=== PATIENT | male | born 1940 | race Caucasian/White ===

== ENCOUNTER 2017-10-12 12:57 | Emergency (ER) | payer OTHER ==
[~2017-10-12] VITALS: Ht 180.3 cm; Wt 80.7 kg
[~2017-10-12 12:57] MED LIST: ALDACTONE25 MG PO; ARICEPT 5 MG TAB5 MG PO; ASPIR 8181 MG PO; CALCIUM POLYCA625 MG PO; ESSENTIAL DAIL1 EACH PO; LIPITOR40 MG PO; LISINOPRIL10 MG PO; LISINOPRIL2.5 MG PO; LOPRESSOR25 PO; MELATONIN3 MG PO; MIRALAX17 GM PO; NITROGLYCERIN0.4 MG SUBLING; PLAVIX 75 MG TA75 M1 PO; ZANTAC 150MG T150 MG PO
[2017-10-12 13:16] LABS: ABSOLUTE EOSINOPHILS 0.3 thou/uL (0.0-0.7); ABSOLUTE LYMPHOCYTES 1.3 thou/uL (0.8-5.3); ABSOLUTE MONOCYTES 0.5 thou/uL (0.0-1.2); ABSOLUTE NEUTROPHILS 7.1 thou/uL (1.6-8.1); BASOPHILS 0.5 %; EOSINOPHILS 3.2 %; HEMATOCRIT 45.6 % (42.0-52.0); HEMOGLOBIN 15.4 gm/dL (14.0-18.0); LYMPHOCYTES 13.9 %; MCH 30.3 pg (26.0-34.0); MCHC 33.9 g/dL (28.0-37.0); MCV 89.5 fL (80.0-100.0); MPV 7.5 fl. (7.2-11.1); NUCLEATED RBCS 0 /100WBC; PLATELET COUNT* 214 thou/uL (150-400); POLYS 77.4 %; WBC 9.2 thou/uL (4.0-11.0)
[2017-10-12] MEDS ORDERED: ALDACTONE25 MG PO (13:21)
[2017-10-12] MEDS ORDERED: SENIOR TABS1 EACH PO (13:22)
[2017-10-12 13:28] LABS: APTT 26.1 Seconds (25.0-31.3); INR 1.1; PROTIME 11.1 Seconds (9.20-11.50)
[2017-10-12 13:30] LABS: ANION GAP 4 mmol/L (7-16); BUN 21 mg/dL (7-18); CHLORIDE 103 mmol/L (98-107); CO2 33 mmol/L (21-32); CREATININE 1.6 mg/dL (0.6-1.3); GLUCOSE 147 mg/dL (70-99); POTASSIUM 4.5 mmol/L (3.5-5.1); SODIUM 140 mmol/L (136-145)
[2017-10-12 14:00] LABS: ALBUMIN 3.8 g/dL (3.4-5.0); ALKALINE PHOSPHATASE 177 U/L (46-116); LIPASE 276 U/L (73-393); NT-PRO BRAIN NAT PEPTIDE 1015 pg/mL (<300); SGOT 28 U/L (15-37); SGPT 51 U/L (30-65); TOTAL BILIRUBIN 0.6 mg/dL (<0.1-1.0); TOTAL PROTEIN 7.2 g/dL (6.4-8.2); TROPONIN-I LEVEL <0.06 ng/mL (<0.06)
[2017-10-12 15:42] VITALS: BP 123/78
--- NOTE | 2017-10-12 15:42 | EKG ---
[place] [address] ELECTROCARDIOGRAM REPORT Name: VAZQUEZ COHN Room: [facility]#: [id number] Admission: 10/12/17 Attend Phys: Discharge: Date of : 42 Report #: [id number] THIS REPORT FOR: //name// 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
--- NOTE | 2017-10-13 11:59 | EKG ---
[place] [address] ELECTROCARDIOGRAM REPORT Name: VAZQUEZ COHN Room: [facility]#: [id number] Admission: 10/12/17 Attend Phys: Discharge: 10/12/17 Date of : 42 Report #: [id number] THIS REPORT FOR: //name// [facility] ED Test Date: 2017-10-12 Test Time: 14:59:55 Pat Name: VAZQUEZ COHN Department: Room: Gender: M Traffic Sign Erection Supervisor: Jai SANDY : 1940 Requested By: Breezy Horan Order Number: [id number] MD: Venkat Santo Measurements Intervals [place] Rate: 67 P: 10 CO: 195 QRS: -24 QRSD: 103 T: 73 QT: 425 QTc: 449 Interpretive Statements Sinus rhythm Atrial premature complex Borderline left axis deviation Anteroseptal infarct, age indeterminate Compared to ECG 10/12/2017 13:01:12 Atrial premature complex(es) now present Myocardial infarct finding still present Electronically Signed On 10-13-2017 11:59:40 QLIKVIEW DEVELOPER by Venkat Santo [email or web address] <ELECTRONICALLY SIGNED> By: Venkat Santo MD, [facility] 10/13/17 1159 1459 1459 Venkat Santo MD, [facility] /EPI
== END 2017-10-12 15:42 | disposition home or self-care (01) ==
LOC: M.ERS 12:57
PROVIDERS: Family Medicine
DX: R07.89 Other chest pain (principal); I25.2 Old myocardial infarction; E78.00 Pure hypercholesterolemia, unspecified; G30.9 Alzheimer's disease, unspecified; F02.80 Dementia in other diseases classified elsewhere, unspecified severity, without behavioral disturbance, psychotic disturbance, mood disturbance, and anxiety; Z87.891 Personal history of nicotine dependence

== ENCOUNTER 2017-12-15 10:09 | Emergency (ER) | payer OTHER ==
[~2017-12-15] VITALS: Ht 175.3 cm; Wt 80.3 kg
[~2017-12-15 10:09] MED LIST changes: +SENIOR TABS1 EACH PO
[2017-12-15] MEDS ORDERED: ARICEPT 5 MG TAB5 MG PO (10:20)
[2017-12-15] MEDS ORDERED: NAMENDA 10 MG T10 MG PO (10:21)
[2017-12-15] MEDS ORDERED: VITAMIN B-6100 MG PO (10:21)
[2017-12-15 10:39] LABS: ABSOLUTE BASOPHILS 0.1 thou/uL (0.0-0.2); ABSOLUTE EOSINOPHILS 0.2 thou/uL (0.0-0.7); ABSOLUTE LYMPHOCYTES 1.2 thou/uL (0.8-5.3); ABSOLUTE MONOCYTES 0.5 thou/uL (0.0-1.2); ABSOLUTE NEUTROPHILS 6.2 thou/uL (1.6-8.1); BASOPHILS 0.8 %; HEMATOCRIT 43.3 % (42.0-52.0); HEMOGLOBIN 14.7 gm/dL (14.0-18.0); LYMPHOCYTES 14.1 %; MCH 30.6 pg (26.0-34.0); MCV 89.9 fL (80.0-100.0); MONOCYTES 6.1 %; MPV 7.4 fl. (7.2-11.1); NUCLEATED RBCS 0 /100WBC; PLATELET COUNT* 193 thou/uL (150-400); RBC 4.82 mil/uL (4.50-6.00); RDW-CV 13.9 % (10.5-14.5); WBC 8.1 thou/uL (4.0-11.0)
[2017-12-15 10:48] LABS: CREATININE 1.3 mg/dL (0.6-1.3); POTASSIUM 3.9 mmol/L (3.5-5.1)
[2017-12-15 10:49] LABS: APTT 26.5 Seconds (25.0-31.3); INR 1.2; PROTIME 11.5 Seconds (9.20-11.50)
[2017-12-15 10:53] LABS: URINE BILIRUBIN NEGATIVE (Negative); URINE BLOOD NEGATIVE (Negative); URINE CLARITY CLEAR; URINE COLOR YELLOW; URINE GLUCOSE-RANDOM NEGATIVE (Negative); URINE KETONES NEGATIVE (Negative); URINE LEUKOCYTES-REFLEX NEGATIVE (Negative); URINE NITRITE-REFLEX NEGATIVE (Negative); URINE PROTEIN NEGATIVE (Negative); URINE SPECIFIC GRAVITY <= 1.005 (1.005-1.030); URINE UROBILINOGEN 0.2 E.U./dl (0.2-1.0)
[2017-12-15 10:57] LABS: ALBUMIN 3.4 g/dL (3.4-5.0); TOTAL BILIRUBIN 0.6 mg/dL (<0.1-1.0); TOTAL PROTEIN 6.4 g/dL (6.4-8.2)
[2017-12-15 11:42] VITALS: BP 141/81
== END 2017-12-15 11:48 | disposition home or self-care (01) ==
LOC: M.ERS 10:09
PROVIDERS: Nurse Practitioner Family
DX: S93.491A Sprain of other ligament of right ankle, initial encounter (principal); G30.9 Alzheimer's disease, unspecified; F02.80 Dementia in other diseases classified elsewhere, unspecified severity, without behavioral disturbance, psychotic disturbance, mood disturbance, and anxiety; E78.00 Pure hypercholesterolemia, unspecified; G47.33 Obstructive sleep apnea (adult) (pediatric); G25.81 Restless legs syndrome; I25.10 Atherosclerotic heart disease of native coronary artery without angina pectoris; I12.9 Hypertensive chronic kidney disease with stage 1 through stage 4 chronic kidney disease, or unspecified chronic kidney disease; N18.3 Chronic kidney disease, stage 3 (moderate); Z87.891 Personal history of nicotine dependence; W01.0XXA Fall on same level from slipping, tripping and stumbling without subsequent striking against object, initial encounter; Y93.89 Activity, other specified; Y92.89 Other specified places as the place of occurrence of the external cause; Y99.8 Other external cause status

== ENCOUNTER 2020-02-04 13:02 | Inpatient (IN) | payer OTHER, MEDICAID ==
[~2020-02-04] VITALS: Ht 180.3 cm; Wt 57.3 kg
[~2020-02-04 13:02] MED LIST changes: +NAMENDA 10 MG T10 MG PO; +VITAMIN B-6100 MG PO
[2020-02-04 13:03] VITALS: BP 113/75
[2020-02-04] MEDS ORDERED: DORYX MPC120 MG PO (13:11)
[2020-02-04] MEDS ORDERED: DEPAKOTE125 MG PO (13:11)
[2020-02-04] MEDS ORDERED: LOPERAMIDE2 MG PO (13:13)
[2020-02-04] MEDS ORDERED: TOPROL XL50 MG (13:14)
[2020-02-04] MEDS ORDERED: SERTRALINE HCL100 MG PO (13:14)
[2020-02-04] MEDS ORDERED: REMERON 30 MG T30 M1 PO (13:14)
[2020-02-04 13:29] LABS: HEMATOCRIT 37.3 % (42.0-52.0); HEMOGLOBIN 12.7 gm/dL (14.0-18.0); MCH 31.1 pg (26.0-34.0); MCV 91.6 fL (80.0-100.0); MPV 8.1 fl. (7.2-11.1); NUCLEATED RBCS 0 /100WBC; PLATELET COUNT* 204 thou/uL (150-400); RBC 4.07 mil/uL (4.50-6.00); RDW-CV 14.8 % (10.5-14.5); WBC 18.1 thou/uL (4.0-11.0)
[2020-02-04 13:39] LABS: INR 1.1; PROTIME 11.7 Seconds (9.20-11.50)
[2020-02-04 13:40] LABS: CALCIUM 8.6 mg/dL (8.5-10.1); CREATININE 1.8 mg/dL (0.6-1.3); POTASSIUM 3.8 mmol/L (3.5-5.1)
[2020-02-04 13:47] LABS: URINE BILIRUBIN NEGATIVE (Negative); URINE BLOOD 2+ (Negative); URINE CLARITY CLEAR; URINE COLOR YELLOW; URINE GLUCOSE-RANDOM NEGATIVE (Negative); URINE KETONES NEGATIVE (Negative); URINE LEUKOCYTES-REFLEX 1+ (Negative); URINE NITRITE-REFLEX NEGATIVE (Negative); URINE PROTEIN TRACE (Negative); URINE SPECIFIC GRAVITY 1.025 (1.005-1.030); URINE UROBILINOGEN 0.2 E.U./dl (0.2-1.0)
[2020-02-04 13:51] LABS: ALBUMIN 2.4 g/dL (3.4-5.0); TOTAL BILIRUBIN 0.3 mg/dL (<0.1-1.0); TOTAL PROTEIN 6.6 g/dL (6.4-8.2)
[2020-02-04 13:55] LABS: ABSOLUTE LYMPHOCYTES 1.1 thou/uL (0.8-5.3); ABSOLUTE MONOCYTES 0.5 thou/uL (0.0-1.2); ABSOLUTE NEUTROPHILS 16.5 thou/uL (1.6-8.1); PLATELET ESTIMATE ADEQUATE
[2020-02-04 13:59] LABS: BACTERIA-REFLEX 1-9 Few /HPF (None Seen); HYALINE CASTS 4-10 Moderate /LPF (None Seen); MUCUS 0-3 Light strn/LPF (None Seen); SQUAMOUS 0-3 Few /LPF (0-3); URINE RBC 0-2 Rare /HPF (0-2); URINE WBC-REFLEX 0-5 Rare /HPF (0-5)
[2020-02-04 14:00] LABS: CRYSTALS None Seen /LPF (None Seen)
--- NOTE | 2020-02-04 14:40 | NUR ---
SLOWED DOWN THE RATE OF THE FLUID INFUSION, DR RODRÍGUEZ CONTINUES TO WANT 2 LITERS NS
--- NOTE | 2020-02-04 15:45 | NUR ---
rotating patient every hour with pillow for comfort under bottom
--- NOTE | 2020-02-04 16:35 | EKG ---
[place] [address] ELECTROCARDIOGRAM REPORT Name: VAZQUEZ COHN Room: [place] [address] ADM IN [facility]#: [id number] Admission: 02/04/20 Attend Phys: Patito Lowe, Discharge: Date of : 42 Date of Service: 02/04/20 1311 Report #: [id number] THIS REPORT FOR: //name// [facility] ED Test Date: 2020-02-04 Test Time: 13:11:07 Pat Name: VAZQUEZ COHN Department: Room: [facility] Gender: M Jet Inspector: KAREN : 1940 Requested By: Breezy Horan Order Number: [id number] MD: Uziel Mackay Measurements Intervals [place] Rate: 98 P: MA: QRS: 10 QRSD: 90 T: 90 QT: 361 QTc: 461 Interpretive Statements Atrial fibrillation Anterior infarct, old Nonspecific T abnormalities, lateral leads Compared to ECG 10/12/2017 14:59:55 Sinus rhythm no longer present Myocardial infarct finding still present Electronically Signed On 02-04-2020 16:34:27 CDT by Uziel Mackay [email or web address] <ELECTRONICALLY SIGNED> By: Uziel Mackay MD, [facility] 02/04/20 1634 1311 1311 Uziel Mackay MD, [facility] /EPI
[2020-02-04 18:04] VITALS: BP 110/45
[2020-02-05] VITALS: BP 124/73
[2020-02-05 04:42] LABS: HEMATOCRIT 33.8 % (42.0-52.0); HEMOGLOBIN 11.5 gm/dL (14.0-18.0); MCH 31.5 pg (26.0-34.0); MCHC 34.1 g/dL (28.0-37.0); MCV 92.5 fL (80.0-100.0); MPV 8.1 fl. (7.2-11.1); RBC 3.66 mil/uL (4.50-6.00); RDW-CV 14.5 % (10.5-14.5); WBC 15.4 thou/uL (4.0-11.0)
[2020-02-05 04:54] LABS: CALCIUM 8.2 mg/dL (8.5-10.1); CREATININE 1.5 mg/dL (0.6-1.3); POTASSIUM 3.9 mmol/L (3.5-5.1)
[2020-02-05 08:00] VITALS: BP 121/64
--- NOTE | 2020-02-05 09:56 | NUR ---
WOUND NURSE: PATIENT SEEN TO ADDRESS STAGE 3 PRESSURE INJURY ON SACRUM MEASURING 6.0 X 3.5 X 0.4 CM. CONTAINS 30% YELLOW SLOUGH & EXUDATE AND 70% RED EARLY GRANULATION TISSUE AND NONGRANULATION TISSUE. THERE IS A LARGE AMOUNT OF SEROUSANGUINOUS DRAINAGE ON THE OLD DRESSING. PERIWOUND REDNESS WITH NO WARMTH OR INDURATION IS ALSO NOTED. CLEANSED WITH SOAP AND WATER, RINSED WITH WATER, THEN PATTED DRY. APPLIED SKIN PREP TO INTACT PERIWOUND TISSUE. APPLIED AQUACEL AG TO WOUND, THEN COVERED WITH OPTIFOAM GENTLE. PLAN FOR EVERY OTHER DAY AND PRN DRESSING CHANGES AND ACQUISITION OF A LOW AIRLOSS MATTRESS, AND Q 2 HOUR SIDE TO SIDE TURN SCHEDULE.
[2020-02-05 12:40] VITALS: BP 117/68
--- NOTE | 2020-02-05 13:12 | NUR ---
SPOKE WITH DR. ARIAS AT NURSING STATION AND INSTRUCTED TO PLACE ORDER FOR SWALLOW EVALUATION BY ST. PT WILL REMAIN NPO TILL THEN. WILL CONTINUE TO ASSESS.
[2020-02-05 13:37] LABS: CALCIUM 8.2 mg/dL (8.5-10.1); CREATININE 1.3 mg/dL (0.6-1.3); POTASSIUM 3.5 mmol/L (3.5-5.1)
--- NOTE | 2020-02-05 14:22 | NUR ---
PT PLACE ON SPECIALTY MATTRESS.
--- NOTE | 2020-02-05 15:35 | NUR ---
CM spoke with Pt's via phone. Dtr is DPOA. Pt resides at [facility], plans is to return at tx. Pt is ambulatory, up until 3 days ago. No DME. Pt is often confused. Per , Pt will likely be in the hospital a few more days. Following Ema Choudhary p:[phone] f:[phone]
[2020-02-05 17:16] VITALS: BP 114/66
[2020-02-05 19:58] VITALS: BP 96/60
[2020-02-05 23:56] VITALS: BP 94/64
[2020-02-06 04:33] VITALS: BP 81/41
--- NOTE | 2020-02-06 04:47 | NUR ---
ASSUMED PT CARE AT 1910. NURSING ASSESSMENT COMPLETED AT START OF SHIFT. PT ALERT BUT NONVERBAL THIS SHIFT. HOURLY ROUNDING COMPLETED. Q2H REPOSITIONING COMPLETED. ALL NEEDS MET. NO S/S OF PAIN OBSERVED. CALL LIGHT WITHIN REACH. HIGH FALL PRECAUTIONS IN PLACE.
[2020-02-06 06:12] LABS: HEMATOCRIT 31.2 % (42.0-52.0); HEMOGLOBIN 10.9 gm/dL (14.0-18.0); MCH 31.6 pg (26.0-34.0); MCHC 34.9 g/dL (28.0-37.0); MCV 90.5 fL (80.0-100.0); MPV 8.2 fl. (7.2-11.1); RBC 3.44 mil/uL (4.50-6.00); RDW-CV 14.4 % (10.5-14.5); WBC 11.5 thou/uL (4.0-11.0)
[2020-02-06 06:30] LABS: CALCIUM 8.2 mg/dL (8.5-10.1); CREATININE 1.1 mg/dL (0.6-1.3); POTASSIUM 3.2 mmol/L (3.5-5.1)
[2020-02-06 07:00] VITALS: BP 96/51
[2020-02-06 08:02] VITALS: BP 110/61
--- NOTE | 2020-02-06 09:54 | NUR ---
ASSUMED CARE OF PT THIS AM AROUND 0715- FILM VAULT SUPERVISOR IN PLACE ORDERED, TRACING A-FIB, RATE CONTROLLED- UPON ASSESSMENT PT NOTED TO BE RESTING IN BED, EYES CLOSED- PT A&O TO SELF AND NON-VERBAL THIS AM-Q [address] INDICATED- LCTA/DIMINISHED IN BASES- VSS, O2 SAT 99% ON 2L VIA NC- ABD SOFT/ROUND/NON-TENDER, BS X4 QUADS-LAST BM REPORTED 02/05/20- IV NOTED TO LEFT AC INTACT, IVF INFUSSING PRESCRIBED- IV ABT GIVEN THIS AM PRESCRIBED- ST HERE TO DO SWALLOW EVAL AT BEDSIDE WITH OKAY FOR CHOPPED DIET WITH THIN LIQUIDS WHILE AWAKE, ASSISTANCEM REQUIRED WITH MEALS- DRESSING TO SACRUM IN PLACE INDICATED WITH NO NEED TO CHANGE- PT UP TO BED SIDE RECLINER THIS AM PER PT-BED/CHAIR ALARM IN PLACE INDICATED R/T SAFETY/NEEDS- CALL LIGHT AND PERSONAL BELONGINGS WITH IN REACH- HOURLY ROUNDS IN PLACE R/T SAFETY/NEEDS- ALL NEEDS MET AT THIS TIME-WCTM
[2020-02-06 13:28] VITALS: BP 96/53
[2020-02-06 13:42] LABS: CALCIUM 8.5 mg/dL (8.5-10.1); CREATININE 1.3 mg/dL (0.6-1.3); POTASSIUM 3.4 mmol/L (3.5-5.1)
[2020-02-06 16:00] VITALS: BP 94/51
--- NOTE | 2020-02-06 16:18 | NUR ---
LUCRECIA spoke with Kalpana from [facility], they are able to accept Pt back to LTC over the weekend, if his covid test comes back negative. Ema Choudhary p:[phone] f:[phone]
[2020-02-06 20:00] VITALS: BP 95/42
[2020-02-07] VITALS: BP 100/56
[2020-02-07 04:00] VITALS: BP 109/50
--- NOTE | 2020-02-07 06:42 | NUR ---
ASSUMED PT CARE AT 1910. NURSING ASSESSMENT COMPLETED THIS SHIFT. PT DROWSY BUT EASILY AROUSABLE. NONVERBAL THIS SHIFT. AFIB ON CONCRETE WALL GRINDER OPERATOR. HOURLY ROUNDING COMPLETED. HIGH FALL PRECAUTIONS IN PLACE. Q2H REPOSITIONING COMPLETED. CALL LIGHT WITHIN REACH.
[2020-02-07 07:47] VITALS: BP 109/69
[2020-02-07 08:50] LABS: HEMATOCRIT 34.4 % (42.0-52.0); HEMOGLOBIN 11.8 gm/dL (14.0-18.0); MCH 31.3 pg (26.0-34.0); MCHC 34.2 g/dL (28.0-37.0); MCV 91.5 fL (80.0-100.0); MPV 7.5 fl. (7.2-11.1); RBC 3.76 mil/uL (4.50-6.00); RDW-CV 14.9 % (10.5-14.5); WBC 13.6 thou/uL (4.0-11.0)
[2020-02-07 09:03] LABS: CREATININE 1.1 mg/dL (0.6-1.3); MAGNESIUM 1.8 mg/dL (1.8-2.4); POTASSIUM 3.8 mmol/L (3.5-5.1)
--- NOTE | 2020-02-07 09:26 | NUR ---
ASSUMED CARE OF PT THIS AM AROUND 07- VEGETABLE PREPARER IN PLACE, TRACING A-FIB/RATE CONTROLLED- UPON ASSESSMENT PT NOTED TO BE RESTING IN BED- PT A&O X1, EYES OPEN THIS AM AND MORE ALERT, BUT STILL NON-VERBLA WITH EXCEPTION OF MOAN/GROAN- INCONT OF BOWEL, GUNN IN PLACE D/D CLEAR YELLOW URINE- BED REST IN PLACE WITH Q 2HOUR TURNS INDICATED- LCTA, DIMINISHED IN BASES- VSS, O2 SAT 97% ON 2L VIA NC- ABD SOFT/ROUND/NON-TENDER, BS X4 QUADS- IV NOTED TO LEFT FA INTACT, IVF INFUSSING PRESCRIBED- SET UP ASSIST WITH ASSISTANCE WITH FEEDING NOTED THIS AM, GOOD PO INTAKE NOTED- DRESSING INTACT TO BOTTOM INDICATED, REPORTED TO HAVE BEEN CHANGED ON PRIOR SHIFT- CALL LIGHT AND PERSONAL BELONGINGS WITH IN REACH- HOURLY ROUNDS IN PLACE R/T SAFETY/NEEDS- ALL NEEDS MET AT THIS TIME-WCTM
[2020-02-07 13:14] VITALS: BP 100/47
[2020-02-07 16:18] VITALS: BP 104/50
[2020-02-07 20:00] VITALS: BP 108/67
[2020-02-08] VITALS: BP 116/66
[2020-02-08 05:20] LABS: HEMATOCRIT 32.6 % (42.0-52.0); HEMOGLOBIN 11.3 gm/dL (14.0-18.0); MCH 31.6 pg (26.0-34.0); MCHC 34.7 g/dL (28.0-37.0); MCV 90.9 fL (80.0-100.0); MPV 7.5 fl. (7.2-11.1); RBC 3.59 mil/uL (4.50-6.00); WBC 13.7 thou/uL (4.0-11.0)
--- NOTE | 2020-02-08 05:21 | NUR ---
Beginning of the shift pt feverish 100.2F, tylenol given now temp 98.7F. Wound on the sacrum area check, cleanse and dressing changed. Q2 turn maintain. Oral care observed. Pt non verval, O2 sat 90's 2L NC. Webb cath draining well. Will continue to monitor.
[2020-02-08 05:40] LABS: CALCIUM 7.8 mg/dL (8.5-10.1); CREATININE 0.9 mg/dL (0.6-1.3); POTASSIUM 3.7 mmol/L (3.5-5.1)
[2020-02-08 08:14] VITALS: BP 125/68
--- NOTE | 2020-02-08 13:39 | NUR ---
VELIA TO DD. O2 WEANED OFF. SAT 92% RA. FED BREAKFAST AND LUNCH. PT WITH DEMENTIA. PT TO TRANSFER TO ROOM 316.
--- NOTE | 2020-02-08 18:03 | NUR ---
PT TRANFERED TO ROOM 304 PER BED.
[2020-02-08 18:10] VITALS: BP 166/56
--- NOTE | 2020-02-08 18:42 | NUR ---
PATIENT ARRIVED TO ROOM 304 ALERT BUT NOT RESPONDING VERBALLY TO QUESTIONS. ON SPECIALTY BED AT THIS TIME. DRY DRESSING OVER SACRUM WOUND. PINK STREAK NOTED ABOVE IV SITE. WILL LET DR KNOW. ASSESSMENT DONE CHARTED. SCD'S APPLIED. RESTING QUIETLY IN BED AT THIS TIME. CALL LIGHT WITHIN REACH. BED ALARM ON.
[2020-02-08 20:00] VITALS: BP 109/73
--- NOTE | 2020-02-09 04:48 | NUR ---
ASSUMED CARES AT 1920. ALERT BUT NONVERBAL. KEEPS EYES CLOSED. DOES NOT FOLLOW COMMANDS EASILY. ON CONTACT ISOLATION FOR PENDING MRSA RESULTS. NEW SALINE LOCK PLACED TO RIGHT FOREARM. GUNN CATHETER DD DARK YELLOW URINE. HAD STOOL INCONTINENCE. DRSG TO SACRAL WOUND CHANGED DUE TO BEING SOILED. DOES HAVE PINK AREA THE LENGTH OF LEFT UPPER ARM. HAS PALPABLE FIRMNESS THERE WELL. TURNED ONTO SIDES. WILL CONTINUE TO MONITOR.
[2020-02-09 06:25] LABS: HEMATOCRIT 32.5 % (42.0-52.0); HEMOGLOBIN 11.3 gm/dL (14.0-18.0); MCH 31.6 pg (26.0-34.0); MCHC 34.9 g/dL (28.0-37.0); MCV 90.5 fL (80.0-100.0); RBC 3.59 mil/uL (4.50-6.00); RDW-CV 14.2 % (10.5-14.5); WBC 10.6 thou/uL (4.0-11.0)
[2020-02-09 06:41] LABS: CALCIUM 7.7 mg/dL (8.5-10.1); CREATININE 0.9 mg/dL (0.6-1.3); MAGNESIUM 1.9 mg/dL (1.8-2.4); POTASSIUM 3.6 mmol/L (3.5-5.1)
--- NOTE | 2020-02-09 07:49 | NUR ---
Eric updated Dr that if Pt is not medically stable to dc today back to LTC, he will need another COVID test, LTC requires a negative COVID test 24-72 hrs prior to admission.
[2020-02-09 07:58] VITALS: BP 125/69
--- NOTE | 2020-02-09 17:21 | NUR ---
GUNN TO BULMARO. RUE REDNESS. RUE US WITH CLOT TO CEPHALIC VEIN. WOUND TO SACRUM WITH DRESSING. DENIES PAIN. PROGRESSING TOWARDS GOALS.
[2020-02-09 18:02] VITALS: BP 109/61
--- NOTE | 2020-02-09 19:40 | NUR ---
AWAKENED FOR VITAL SIGNS AND REASSESSMENT. OPENED HIS EYES BUT NON VERBAL. GUNN TO DEPENDENT DRAINAGE WITH YELLOW URINE. CALL LIGHT WITHIN REACH.
[2020-02-09 19:45] VITALS: BP 105/61
--- NOTE | 2020-02-10 06:16 | NUR ---
RESTED QUIETLY. REPOSITIONED. INCONTINENT OF LOOSE STOOL X ONE. [place] CARE GIVEN. DRESSING ON COCCYX CHANGED DUE TO BEING SOILED. HOURLY ROUNDING IN PROGRESS.
[2020-02-10 07:25] VITALS: BP 138/87
--- NOTE | 2020-02-10 11:38 | NUR ---
JOSE called Renuka with [facility] admissions and provided update of plan for [facility]. SW faxed information and negative covid test and transfer facility request form. SW to follow to assist with finalizing safe dc plan and will fax dc summary/orders upon dc. [facility] ph [phone]
[2020-02-10 16:00] VITALS: BP 134/76
--- NOTE | 2020-02-10 17:24 | NUR ---
PATIENTS DAUGHTER CAME UP TODAY TO SEE HIM AND SIGNED THE SURGICAL CONSENT AND THE BLOOD CONSENT. PATIENT ATE FAIRLY WELL TODAY AND USED THE URINAL NEEDED. HE C/O PAIN X 1 TODAY IN THE LEFT LEG AND WAS MEDICATED FOR THIS. HE IS ALERT AND CONFUSED HE IS HOWEVER ORIENTED TO SELF AND SITUATION. HE IS AWARE THAT HE IS HAVING SURGERY TOMORROW MORNING TO AMPUTATE THE LEFT LEG. IV ANTIBIOTICS CONTINUE AND HE IS CURRENTLY DOWN TO ULTRASOUND FOR A BILATERAL THORACENTISIS WITH CHEST TUBE CONNECTED ON THE LEFT. NO S/S OF DISTESS NOTED TODAY. HE DID NOT COMPLAIN OF SOB. HE IS ON 2 LITERS OF OXYGEN VIA N/C.
--- NOTE | 2020-02-10 17:29 | NUR ---
PATIENT HAS RESTED WELL TODAY. HE DID EAT A SMALL AMOUNT OF BREAKFAST BUT NO LUNCH. HIS CAME UP TO VISIT HIM BUT HE DID NOT SEEM TO KNOW WHO SHE WAS. HE HAS BEEN NON VERBAL TODAY WITH NO SIGNS OF PAIN. WE HAVE TURNED HIM EVERY 2 HOURS AND HIS DRESSING IN INTACT. IT WAS CHANGED EARLY THIS AM BY THE ELECTRIC WHEELCHAIR REPAIRER NURSE. NO S/S OF DISTRESS NOTED TODAY.
[2020-02-10 19:56] VITALS: BP 110/64
--- NOTE | 2020-02-11 05:28 | NUR ---
CLEANED SACRUM WOUND AND PUT ON AQUA CELL AG, OPTI FOAM AND MEPALEX TO HOLD FOAM DRESSING. PATIENT HAD BM, GUNN STILL IN PLACE. HE IS A MAX ASSIST AND DID RECEIVE Q2 TURNS THROUGH SHIFT. RECEIVED ALL MEDS AND ABX SCHEDULED. TAKES MEDS CRUSHED WITH APPLESAUCE. IS INCONTINENT. ALERT TO SELF NOT VERBAL EXCEPT AN OCCASIONALLY YES OR NO. SLEPT THROUGH THE SHIFT WELL. WILL CONTINUE TO FOLLOW PLAN OF CARE.
[2020-02-11 07:59] VITALS: BP 136/70
[2020-02-11] MEDS ORDERED: KEFLEX500 M1 PO (08:13)
--- NOTE | 2020-02-11 09:04 | NUR ---
WOUND NURSE: LEARNED THAT PATIENT HAS ORDER TO BE SCHEDULED WITH OUTPATIENT WOUND CLINIC IN ONE WEEK POST DISCHARGE. PATIENT'S INSURANCE IS OUT OF NETWORK FOR OUTPATIENT WOUND CARE HERE. I SPOKE WITH PATIENT'S NURSE ABOUT THIS AND LEFT A MESSAGE FOR THE REPORT SPECIALIST SO PATIENT CAN BE SCHEDULED AT A WOUND CARE CENTER THAT IS IN NETWORK FOR HIS INSURANCE.
[2020-02-11 09:36] VITALS: BP 136/70
[2020-02-11 10:47] VITALS: BP 136/70
[2020-02-11 12:33] VITALS: BP 136/70
[2020-02-11 13:38] VITALS: BP 136/70
--- NOTE | 2020-02-11 13:46 | NUR ---
I JUST CALLED REPORT TO FELI GONZALEZ AT [facility]. I INFORMED HER THAT MR. COHN IS GOING TO BE SEEING THE WOUND CARE TEAM AT THAT FACILITY AND I ALSO WENT OVER THE WOUND CARE ORDER THAT WE ARE USING HER UNTIL THE FOLLOW UP OCCURS. I DID LET HER KNOW THAT HE WOULD BE KEEPING THE GUNN CATH FOR 2 MORE WEEKS FOR WOUND HEALING. I ALSO WENT OVER THE NEW MEDICATION THAT IS AN ANTIBIOTIC THAT HE WILL BE TAKING THERE. ALL QUESTIONS ANSWERED. I LET HER KNOW THAT HIS OPTICAL BRIGHTENER MAKER HELPER TIME IS APPROX. 3PM.
--- NOTE | 2020-02-11 15:32 | NUR ---
TRANSPORT IS HERE TO TAKE PATIENT TO [facility] VIA [facility]. I DID ASSIST HIM WITH TRANSFERRING THE PATIENT TO THE [facility]. NO DISTRESS OR S/S OF DISCOMFORT NOTED AT TIME OF DISCHARGE. DISCHARGE PACKET SENT WITH HIM AND REPORT WAS CALLED EARLIER.
--- NOTE | 2020-02-11 16:55 | NUR ---
Pt to dc to [facility] today and transport scheduled for 3 pm. [facility] to follow up with wound care and they schedule wound clinic OP appts if needed. JOSE faxed dc summary, orders, wound care notes and therapy notes to Renuka in admissions. Chart copied, pt nurse aware and pt nurse informed pt dtr of dc details. [facility] [phone]
== END 2020-02-11 15:32 | DRG 871 ==
LOC: M.ERS 13:02 → M.TBA-ER 14:58 → M.2W 14:58 → M.3W 14:58 → M.2W 17:57 → M.3W 02-08 18:06
PROVIDERS: Family Medicine; ADMIT Internal Medicine; ATTEND Internal Medicine
DX: A41.9 Sepsis, unspecified organism (principal); L89.313 Pressure ulcer of right buttock, stage 3; J96.01 Acute respiratory failure with hypoxia; G93.41 Metabolic encephalopathy; L03.317 Cellulitis of buttock; E87.0 Hyperosmolality and hypernatremia; I43 Cardiomyopathy in diseases classified elsewhere; G30.9 Alzheimer's disease, unspecified; F02.80 Dementia in other diseases classified elsewhere, unspecified severity, without behavioral disturbance, psychotic disturbance, mood disturbance, and anxiety; I25.10 Atherosclerotic heart disease of native coronary artery without angina pectoris; E78.5 Hyperlipidemia, unspecified; I12.9 Hypertensive chronic kidney disease with stage 1 through stage 4 chronic kidney disease, or unspecified chronic kidney disease; N18.3 Chronic kidney disease, stage 3 (moderate); E78.00 Pure hypercholesterolemia, unspecified; G47.33 Obstructive sleep apnea (adult) (pediatric); L53.9 Erythematous condition, unspecified; G25.81 Restless legs syndrome; R65.20 Severe sepsis without septic shock; I25.2 Old myocardial infarction; Z79.82 Long term (current) use of aspirin; Z79.899 Other long term (current) drug therapy; Z87.891 Personal history of nicotine dependence; Z03.818 Encounter for observation for suspected exposure to other biological agents ruled out